=== PATIENT | male | born 1970 | race Caucasian/White ===

== ENCOUNTER 2017-10-05 10:47 | Inpatient (IN) | payer OTHER ==
[2017-10-05] MEDS ORDERED: ceFAZolin 2 GM/DEXTROSE 100 ML IV ONE (12:12)
--- NOTE | 2017-10-05 12:12 | PDHPUP ---
History & Physical Update H&P update statement: This history and physical update is based on an assessment of the patient which was completed after admission or registration (within 24 hours), but prior to the surgery/procedure. H&P update: H&P reviewed & patient examined, no change in patient's condition since H&P completed (printed form on chart from office visit today)
[2017-10-05] MEDS ORDERED: LIDOCAINE 1% 2 ML INJ ID PRN (14:51)
[2017-10-05] MEDS ORDERED: LR 1,000 ML IV ONE (14:51)
[2017-10-05] MEDS ORDERED: NS 500 ML IV PRN ×2 (15:38→18:42)
[2017-10-05] MEDS ORDERED: PROMETHAZINE HCL 25 MG/ML INJ IVP PRN (15:38)
[2017-10-05] MEDS ORDERED: fentaNYL 100 MCG/2 ML INJ IVP PRN ×2 (15:38→18:40)
[2017-10-05] MEDS ORDERED: NALOXONE HCL 0.4 MG/ML INJ IVP PRN ×3 (15:38→18:42)
[2017-10-05] MEDS ORDERED: OXYCODONE/APAP 5/325 TAB PO PRN ×2 (15:38→18:40)
[2017-10-05] MEDS ORDERED: HYDROmorphONE/DILAUDID 1 MG/ML INJ IVP PRN ×3 (15:38→18:42)
[2017-10-05] MEDS ORDERED: ONDANSETRON 4 MG/2 ML VIAL IVP PRN ×3 (15:38→18:42)
[2017-10-05] MEDS ORDERED: ACETAMINOPHEN 500 MG TAB PO PRN (15:38)
[2017-10-05] MEDS ORDERED: ALBUTEROL 3 ML DEYVIAL IH PRN ×2 (15:38→18:40)
[2017-10-05] MEDS ORDERED: MIDAZOLAM 2 MG/2 ML VIAL IVP ONE (15:39)
--- NOTE | 2017-10-05 15:40 | PDANEPAE ---
ANE History of Present Illness Dural Leak ANE Past Medical History - Cardiovascular History Hx Hypertension: Yes Hx Arrhythmias: No Hx Chest Pain: No Hx Coronary Artery / Peripheral Vascular Disease: No Hx CHF / Valvular Disease: No Hx Palpitations: No - Pulmonary History Hx COPD: No Hx Asthma/Reactive Airway Disease: No Hx Recent Upper Respiratory Infection: No Hx Oxygen in Use at Home: No Hx Sleep Apnea: No Sleep Apnea Screening Result - Last Documented: Negative - Neurologic History Hx Cerebrovascular Accident: No Hx Seizures: No Hx Dementia: No - Endocrine History Hx Diabetes: No - Renal History Hx Renal Disorders: No - Liver History Hx Hepatic Disorders: No - Neurological & Psychiatric Hx Hx Neurological and Psychiatric Disorders: No - Cancer History Hx Cancer: No - Congenital Disorder History Hx Congenital Disorders: No - GI History Hx Gastrointestinal Disorders: No - Chronic Pain History Chronic Pain: Yes (Back) - Surgical History Prior Surgeries: 2 back sx. bilateral lasix ANE Review of Systems Review of systems is: negative Review of Systems: - Exercise capacity Exercise capacity: >=4 METS METS (RN): 6 METS ANE Patient History - Allergies Allergies/Adverse Reactions: No Known Allergies Allergy (Unverified 04/07/10 14:34) - Home Medications Home Medications: Losartan Potassium [Cozaar 25 mg (*)] 12.5 mg 10/05/17 [Last Taken 10/04/17] - NPO status NPO Since - Liquids (Date): 10/05/17 NPO Since - Liquids (Time): 07:00 NPO Since - Solids (Date): 10/04/17 NPO Since - Solids (Time): 20:00 - Smoking Hx Smoking Status: Never smoked - Family Anes Hx Family Hx Anesthesia Complications: none ANE Labs/Vital Signs - Vital Signs Blood Pressure: 129/86 Heart Rate: 53 Respiratory Rate: 14 O2 Sat (%): 98 Height: 185.42 cm Weight: 79.379 kg ANE Physical Exam - Airway Neck exam: FROM Mallampati Score: Class 2 Mouth exam: normal dental/mouth exam - Pulmonary Pulmonary: clear to auscultation - Cardiovascular Cardiovascular: regular rate and rhythym - ASA Status ASA Status: I ANE Anesthesia Plan Anesthesia Plan: general endotracheal anesthesia
[2017-10-05] MEDS ORDERED: fentaNYL 100 MCG/2 ML INJ ONE (15:45)
[2017-10-05] MEDS ORDERED: PROPOFOL 200 MG/20 ML VIAL ONE (15:46)
[2017-10-05] MEDS ORDERED: SUCCINYLCHOLINE CHLORIDE 200 MG/10 ML SYR IVP ONE (15:48)
[2017-10-05] MEDS ORDERED: LIDOCAINE 2% 5 ML SDV ONE (15:48)
[2017-10-05] MEDS ORDERED: ONDANSETRON 4 MG/2 ML VIAL ONE (15:49)
[2017-10-05] MEDS ORDERED: DEXAMETHASONE 4 MG/ML VIAL ONE (15:49)
[2017-10-05] MEDS ORDERED: RANITIDINE 50 MG/2 ML VIAL ONE (15:49)
[2017-10-05] MEDS ORDERED: PROPOFOL/EMULSION 500 MG/50 ML BOTTLE IV ONE ×2 (15:52)
[2017-10-05] MEDS ORDERED: BUPIVACAINE 0.25% 30 ML SDV ONE (15:59)
[2017-10-05] MEDS ORDERED: THROMBIN (BOVINE) 5,000 UNIT VIAL TP ONE (16:00)
[2017-10-05] MEDS ORDERED: BACITRACIN 50,000 UNITS/10 ML SYR IRR ONE (16:00)
[2017-10-05] MEDS ORDERED: CHLORHEXIDINE GLUC HIBICLENS 118 ML BTL TP ONE (16:01)
[2017-10-05] MEDS ORDERED: REMIFENTANIL HCL 1 MG VIAL ONE ×2 (16:10)
[2017-10-05] MEDS ORDERED: LR 500 ML IV PRN (18:40)
--- NOTE | 2017-10-05 18:41 | POSTANESTH ---
Post Anesthetic Evaluation Cardiovascular Status: Normal, Stable Respiratory Status: Normal, Stable Level of Consciousness/Mental Status: Can Participate in Eval, Alert and Oriented Pain Control: Adequate, Prn Tx Ordered Nausea/Vomiting Control: Adequate, Prn Tx Ordered Complications Possibly Related to Anesthesia: None Noted
[2017-10-05] MEDS ORDERED: ONDANSETRON DISINTEGRATING 4 MG TAB PO PRN (18:42)
[2017-10-05] MEDS ORDERED: POLYETHYLENE GLYCOL 3350 17 GM PKT PO PRN (18:42)
[2017-10-05] MEDS ORDERED: HYDROmorphONE/DILAUDID 6 MG/30 ML PCA IV PRN (18:42)
[2017-10-05] MEDS ORDERED: LACTULOSE 20 GM/30 ML UDCUP PO PRN (18:42)
[2017-10-05] MEDS ORDERED: diphenhydrAMINE 25 MG CAP PO PRN (18:42)
[2017-10-05] MEDS ORDERED: BISACODYL 10 MG SUPP PR PRN (18:42)
[2017-10-05] MEDS ORDERED: ZOLPIDEM TARTRATE 5 MG TAB PO PRN (18:42)
[2017-10-05] MEDS ORDERED: HYDROCODONE/APAP 5/325 TAB PO PRN (18:42)
--- NOTE | 2017-10-05 18:42 | SOAPPROG ---
SOAP Progress Note Assessment/Plan: Post Op Visit: S: Awake and alert. NAD. Pt with expected lower back pain O: AFVSS/PERRLA/EOMI no droop CN 2-12 grossly intact +lt touch 5/5 BUE/BLE = CDI LD in place-working well A/P: 47 yo male that is s/p wound exploration with repair of dural tear -orders in place -call with any questions or concerns -flat at all times-can log roll -LD open at rate of 10-15 cc/hr -seen by Dr Gay 10/05/17 18:40 Objective: Vital Signs Temp Pulse Resp BP Pulse Ox 36.4 C 53 L 14 129/86 H 98 10/05/17 15:11 10/05/17 15:40 10/05/17 15:40 10/05/17 15:40 10/05/17 15:40 ICD10 Worksheet Patient Problems: Problems Problem Status Onset CSF leak Acute Inadvertent durotomy Acute Lumbar radicular pain Acute Lumbar stenosis Acute - ICD10 Problem Qualifiers (1) Lumbar stenosis (2) Lumbar radicular pain (3) Inadvertent durotomy (4) CSF leak
[2017-10-05] MEDS ORDERED: DEXMEDETOMIDINE HCL 400 MCG in NS 100 ML IV SCH (19:00)
[2017-10-05] MEDS ORDERED: HYDROmorphONE/DILAUDID 2 MG/ML INJ ONE (19:37)
[2017-10-05] MEDS: ACETAMINOPHEN 500 MG TAB PO SCH (21:30)
[2017-10-05] MEDS: oxyCODONE IR 5 MG TAB PO PRN (21:30)
[2017-10-05] MEDS: ceFAZolin 2 GM/DEXTROSE 100 ML IV SCH (21:30)
[2017-10-05] MEDS: METHOCARBAMOL 750 MG TAB PO PRN (21:31)
[2017-10-05] MEDS: SENNOSIDES/DOCUSATE SODIUM TAB PO SCH (21:31)
[2017-10-05] MEDS: FAMOTIDINE 20 MG TAB PO SCH (21:31)
[2017-10-05] MEDS: DEXMEDETOMIDINE IN 0.9 % NACL 50 ML IV SCH (23:09)
[2017-10-06] MEDS: DEXMEDETOMIDINE IN 0.9 % NACL 50 ML IV SCH ×2 (01:54→04:48)
[2017-10-06] MEDS: oxyCODONE IR 5 MG TAB PO PRN ×4 (01:54→19:15)
--- NOTE | 2017-10-06 02:45 | GOP ---
[f rep st] OPERATIVE REPORT DATE OF OPERATION: 10/05/2017 SURGEON: Migdalia Gay MD ATMOSPHERIC PHYSICIST: Shaggy Weaver PA-C. PREOPERATIVE DIAGNOSIS: Delayed cerebrospinal fluid leak, lumbar spine. POSTOPERATIVE DIAGNOSIS: Delayed cerebrospinal fluid leak, lumbar spine. PROCEDURE PERFORMED: 1. Percutaneous placement of a lumbar drainage catheter for therapeutic purposes at the L2-3 level. 2. Repair of lumbar spine, cerebrospinal fluid leak, and durotomy with laminectomy at L5. FINDINGS: ESTIMATED BLOOD LOSS: 10 cc. INDICATIONS: The patient is a 47-year-old who underwent a successful lumbar laminectomy 1 week ago, and he was doing relatively well until this past weekend when he developed increasing leg pain, numbness in the leg, mild headaches. his headache and all of his symptoms improved when he was lying flat. 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 He was taken to the operating room urgently on the day of the diagnosis. He understood the risks of the procedure, including the risk of nerve injury, infection, and recurrent spinal fluid leak. He did want to proceed. DESCRIPTION OF PROCEDURE: Patient was taken to the operating room, placed in supine position. General anesthesia was begun. He was flipped prone on the Eliseo frame. Care was taken to pad all points of contact. His back was sterilely prepped and draped in usual fashion. A localizing x-ray was taken. Using fluoroscopic guidance, we placed a percutaneous lumbar drainage catheter at the L2-3 level. There was return of xanthochromic CSF. We then turned our attention to the incision. We cut his sutures, and one could appreciate in the subfascial space the same xanthochromic fluid as we could see in the spinal fluid that was drained from the lumbar drainage catheter. Self-retaining retractors were placed. There was no other evidence of problem at the laminae site. The prior previous adherence to the dura on the left-hand side of some old scar tissue actually had from the dura and we were able to remove this on the left-hand side. We appreciated a midline dural bleb that was located deep to the preserved the ligamentum flavum at the L4-5 level. The dural bleb was right at the rostral tip of L5 that had been preserved. We took a high-speed drill and drilled off the rostral arch of L5. L5 itself really was still maintained. We used a Kerrison punch to remove this and stayed well away from the bleb. As we removed this, it also was attached to the ligamentum flavum above the dural defect, and this was completely removed and we were left staring and arachnoid bleb coming out of the midline dura. There was a small area of thinning of the dura over on the left-hand side adjacent to the left L5 pedicle, but there was no leakage of spinal fluid from this site. A Valsalva maneuver was performed, and the spinal fluid only emanated from the region of the durotomy in the bleb. We did remove, however, bone above the left L5 nerve root sleeve where the other slight dural defect was appreciated, but again, there was no significant arachnoid bleb present here. We then reduced the arachnoid bleb into the intrathecal space and took a 6-0 Prolene suture and placed a single Z-stitch across the dural opening and then tied it, and then repeated our Valsalva maneuver, and there was no leakage whatsoever. A completely watertight closure had been obtained. We then finished inspecting. Circumferentially, there was no evidence of any additional abnormalities in the dura itself. We then closed with interrupted Vicryl sutures. A running PDS was placed in the skin. There were no complications. He tolerated the procedure well and will be transferred to the ICU for lumbar drainage care. COMPLICATIONS: None. /[id number]/MODL MTDD
[2017-10-06] MEDS: METHOCARBAMOL 750 MG TAB PO PRN ×3 (06:10→19:15)
[2017-10-06] MEDS: ACETAMINOPHEN 500 MG TAB PO SCH ×3 (06:10→21:28)
[2017-10-06] MEDS: ceFAZolin 2 GM/DEXTROSE 100 ML IV SCH (06:10)
--- NOTE | 2017-10-06 07:09 | NEUSURGPN ---
Date of Surgery: 10/05/17 Post Op Day: 1 Assessment/Plan: Assessment: 47 yo male that is s/p wound exploration with repair of dural tear POD #1 Plan: -s/p wound exploration and dural repair-incision CDI, dressing in place -LD open to continuous at 10-15 cc/hr -PT/OT on hold -flat at all times until Wednesday am -SCDS/TEDS -orders in place -call with any questions or concerns -flat at all times-can log roll -seen by Dr Gay -dressing looks good as does position of drain 10/05/17 18:40 Subjective: Awake and alert. NAD. Eating/drinking and voiding. No f/c/n/v/d. Objective: AFVSS/PERRLA/EOMI no droop CN 2-12 grossly intact +lt touch 5/5 BUE/BLE = CDI LD in place-working well Neuro Check Frequency: per routine Urinary Catheter in Place: No - Physician Discussed Patient with : Victor Hugo Patient Seen by : Victor Hugo Neurosurgery Physical Exam - Vitals, I&O, Labs I and O 10/05/17 10/06/17 10/07/17 05:59 05:59 05:59 Intake Total 1271.6 Output Total 653 300 Balance -653 971.6 Weight 79.379 kg Intake: Oral (ml) 400 IV Infused (ml) 871.6 Dexmedetomidine HCl 400 59.6 mcg In Ns 100 ml @ Titrate IV CONT CB Rx#: [id number] HYDROmorphone HCL See 3 Protocol IV PRN PRN Rx#: [id number] NS W/ 20 KCl/L 1,000 ml @ 809 75 mls/hr IV CONT CB Rx #:[id number] Output: Urine (ml) 500 300 Urinal 500 300 CSF Drainage Amount 153 Lumbar Drain 153 Other: Intake Quantity Yes Sufficient Microbiology 10/05/17 17:13 Gram Stain - Final Other - Eswab Vital Signs Temp Pulse Resp BP Pulse Ox 36.4 C 67 14 104/65 93 10/05/17 18:30 10/06/17 05:59 10/06/17 05:59 10/06/17 05:59 10/06/17 05:59 ICD10 Worksheet Patient Problems: Problems Problem Status Onset CSF leak Acute Inadvertent durotomy Acute Lumbar radicular pain Acute Lumbar stenosis Acute - ICD10 Problem Qualifiers (1) Lumbar stenosis (2) Lumbar radicular pain (3) Inadvertent durotomy (4) CSF leak
[2017-10-06] MEDS ORDERED: Finasteride [Propecia] 1 MG PO SCH (09:00)
[2017-10-06] MEDS: FAMOTIDINE 20 MG TAB PO SCH ×2 (09:14→19:16)
[2017-10-06] MEDS: SENNOSIDES/DOCUSATE SODIUM TAB PO SCH ×2 (09:14→19:16)
[2017-10-06] MEDS: LOSARTAN POTASSIUM 25 MG TAB PO SCH ×2 (09:15→09:17)
[2017-10-06] MEDS: NS W/ 20 KCl/L 1,000 ML IV SCH (10:01)
--- NOTE | 2017-10-06 12:08 | ASMTCMCOM ---
CM Note CM Note Notes: Patient is POD #1 wound exploration with repair of dural tear. He is s/p lumbar laminectomy 09/27 (outpatient). He has a lumbar drain and is on strict bedrest until Wednesday AM. PT/OT on hold until that time. 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 CM will follow for discharge planning. Current CM Discharge plan: TBD Date Signed: 10/06/2017 12:08 PM Electronically Signed By:Jordyn Siddiqi RN
[2017-10-06] MEDS: MAGNESIUM HYDROXIDE 30 ML UDCUP PO PRN (19:18)
[2017-10-06] MEDS ORDERED: DIAZEPAM 10 MG TAB PO PRN (20:49)
[2017-10-06] MEDS: ENOXAPARIN 40 MG/0.4 ML SYR SC SCH (21:29)
[2017-10-07] MEDS: ACETAMINOPHEN 500 MG TAB PO SCH ×3 (06:06→20:12)
--- NOTE | 2017-10-07 08:20 | NEUSURGPN ---
Date of Surgery: 10/05/17 Post Op Day: 2 Assessment/Plan: Assessment: 47 yo male that is s/p wound exploration with repair of dural tear POD #2 Plan: -s/p wound exploration and dural repair-incision CDI, dressing in place -LD open to continuous at 10-15 cc/hr-working well -PT/OT on hold -flat at all times until Wednesday am -SCDS/TEDS -on lovenox -pt on bowel protocol -orders in place -call with any questions or concerns -flat at all times-can log roll -seen by Dr Gay -dressing looks good as does position of drain 10/05/17 18:40 Subjective: Awake and alert. NAD. Eating/drinking and voiding. No BM-on protocol No f/c/n /v/d. No marquez/neck/chest/abd or gu complaints. Objective: AFVSS/PERRLA/EOMI no droop CN 2-12 grossly intact +lt touch 5/5 BUE/BLE = CDI LD in place-working well Neuro Check Frequency: per routine Urinary Catheter in Place: No - Physician Discussed Patient with Dr.: Victor Hugo Patient Seen by .: Victor Hugo Neurosurgery Physical Exam - Vitals, I&O, Labs I and O 10/06/17 10/07/17 10/08/17 05:59 05:59 05:59 Intake Total 3174.4 Output Total 653 2265 14 Balance -653 909.4 -14 Weight 79.379 kg Intake: Oral (ml) 1150 IV Infused (ml) 2024.4 Dexmedetomidine HCl 400 74.8 mcg In Ns 100 ml @ Titrate IV CONT CB Rx#: [id number] HYDROmorphone HCL See 8.6 Protocol IV PRN PRN Rx#: [id number] NS W/ 20 KCl/L 1,000 ml @ 1941 75 mls/hr IV CONT CB Rx #:[id number] Output: Urine (ml) 500 1950 Urinal 500 1950 CSF Drainage Amount 153 315 14 Lumbar Drain 153 315 14 Other: Intake Quantity Yes Sufficient Number of Voids Urinal 2 Microbiology 10/05/17 17:13 Gram Stain - Final Other - Eswab Vital Signs Temp Pulse Resp BP Pulse Ox 36.7 C 60 15 112/71 98 10/07/17 00:00 10/07/17 07:23 10/07/17 07:23 10/07/17 07:23 10/07/17 07:23 ICD10 Worksheet Patient Problems: Problems Problem Status Onset CSF leak Acute Inadvertent durotomy Acute Lumbar radicular pain Acute Lumbar stenosis Acute - ICD10 Problem Qualifiers (1) Lumbar stenosis (2) Lumbar radicular pain (3) Inadvertent durotomy (4) CSF leak
[2017-10-07] MEDS: SENNOSIDES/DOCUSATE SODIUM TAB PO SCH ×2 (08:25→20:12)
[2017-10-07] MEDS: ENOXAPARIN 40 MG/0.4 ML SYR SC SCH (08:26)
[2017-10-07] MEDS: FAMOTIDINE 20 MG TAB PO SCH (08:26)
[2017-10-07] MEDS: MAGNESIUM HYDROXIDE 30 ML UDCUP PO PRN (08:26)
[2017-10-07] MEDS: LOSARTAN POTASSIUM 25 MG TAB PO SCH (08:26)
[2017-10-07] MEDS: METHOCARBAMOL 750 MG TAB PO PRN (08:41)
[2017-10-07] MEDS ORDERED: METHYLNALTREXONE BROMIDE 12 MG/0.6 ML INJ SC ONE (15:45)
[2017-10-07] MEDS ORDERED: KETOROLAC 30 MG/1 ML SDV IVP PRN (16:26)
[2017-10-07] MEDS ORDERED: KETOROLAC 30 MG/1 ML SDV IVP ONE (16:45)
[2017-10-07] MEDS: DEXMEDETOMIDINE IN 0.9 % NACL 50 ML IV SCH (18:00)
[2017-10-07] MEDS: NS W/ 20 KCl/L 1,000 ML IV SCH (18:01)
[2017-10-07] MEDS ORDERED: NS W/ 20 KCl/L 1,000 ML IV SCH (19:00)
[2017-10-07] MEDS: FAMOTIDINE 20 MG/NACL/50 ML BAG IV SCH (20:17)
[2017-10-08] MEDS: DEXMEDETOMIDINE IN 0.9 % NACL 50 ML IV SCH (01:03)
[2017-10-08] MEDS: ACETAMINOPHEN 500 MG TAB PO SCH ×3 (01:38→21:59)
[2017-10-08] MEDS: KETOROLAC 30 MG/1 ML SDV IVP PRN ×3 (03:39→20:02)
[2017-10-08] MEDS: DIAZEPAM 10 MG/2 ML SYR IVP PRN ×2 (04:02→20:03)
[2017-10-08 04:20] LABS: PLATELET COUNT 224 10^3/uL (150-400)
--- NOTE | 2017-10-08 07:55 | SOAPPROG ---
SOAP Progress Note Assessment/Plan: Assessment/Plan: POD #3. Assessment: 47 yo male that is s/p wound exploration with repair of dural tear POD #3. Neuro intact and stable pain well controlled NG tube in place feeling much better Plan: -s/p wound exploration and dural repair-incision CDI, dressing in place -LD open to continuous at 10-15 cc/hr-working well -PT/OT on hold -flat at all times until Wednesday am -SCDS/TEDS -on lovenox -pt on bowel protocol -call with any questions or concerns -flat at all times-can log roll -dressing looks good as does position of drain -discussed with Dr. Gay Subjective: Awake and alert. Feeling better today. NG in place, but he would like it removed. It has been clamped by RN. No marquez/neck/chest/abd or gu complaints. Objective: AFVSS/PERRLA/EOMI no droop CN 2-12 grossly intact +lt touch 5/5 BUE/BLE = CDI LD in place-working well 10/08/17 07:55 Objective: Vital Signs Temp Pulse Resp BP Pulse Ox 36.3 C 45 L 14 105/69 94 10/08/17 04:00 10/08/17 04:00 10/08/17 04:00 10/08/17 04:00 10/08/17 04:00 Microbiology 10/05/17 17:13 Gram Stain - Final Other - Eswab Laboratory Results 10/08/17 04:10 10/08/17 04:10 10/07/17 10/08/17 10/09/17 05:59 05:59 05:59 Intake Total 3174.4 1132 Output Total 4267 4893 Balance 909.4 -705 ICD10 Worksheet Patient Problems: Problems Problem Status Onset CSF leak Acute Inadvertent durotomy Acute Lumbar radicular pain Acute Lumbar stenosis Acute
[2017-10-08] MEDS: ENOXAPARIN 40 MG/0.4 ML SYR SC SCH (08:21)
[2017-10-08] MEDS: FAMOTIDINE 20 MG/NACL/50 ML BAG IV SCH ×2 (08:21→22:05)
[2017-10-08] MEDS ORDERED: MBX SOLN 30 ML BOTTLE PO PRN (09:30)
[2017-10-08] MEDS: LOSARTAN POTASSIUM 25 MG TAB PO SCH (09:36)
[2017-10-08] MEDS: SENNOSIDES/DOCUSATE SODIUM TAB PO SCH ×2 (09:36→22:00)
--- NOTE | 2017-10-08 12:37 | ASMTCMCOM ---
CM Note CM Note Notes: Patient remains on strict bed rest until Wednesday. PT/OT have not been able to eval yet. Awaiting therapies to determine d/c needs. CM will follow. Date Signed: 10/08/2017 12:37 PM Electronically Signed By:Radha Toscano LCSW
[2017-10-09] MEDS: DEXMEDETOMIDINE IN 0.9 % NACL 50 ML IV SCH (03:03)
[2017-10-09] MEDS: ACETAMINOPHEN 500 MG TAB PO SCH ×3 (07:46→21:28)
--- NOTE | 2017-10-09 08:27 | NEUSURGPN ---
Date of Surgery: 10/05/17 Post Op Day: 4 Assessment/Plan: POD #3. Assessment: 47 yo male that is s/p wound exploration with repair of dural tear POD #4. Plan: -neuro stable -pain controlled -LD open to continuous at 10-15 cc/hr-working well, dressing clean -PT/OT on hold until upright -flat at all times until Wednesday am -SCDS/TEDS -on lovenox -pt on bowel protocol, will defer to Dr. Rucker regarding NG tube -call with any questions or concerns -flat at all times-can log roll -please call with any questions/concerns Subjective: Doing well this morning. Pain controlled. No headaches or new overnight issues. (+) flatulence, No BM. Objective: Awake. Alert. PERRL. EOMI LE strength 5/5 Sensation intact Incision with dressing c/d/i Neurosurgery Physical Exam - Vitals, I&O, Labs I and O 10/08/17 10/09/17 10/10/17 05:59 05:59 05:59 Intake Total 1132 1907 Output Total 1837 1005 45 Balance -705 902 -45 Intake: IV Intake (ml) 950 IV Infused (ml) 1132 957 Dexmedetomidine HCl 400 36 47 mcg In Ns 100 ml @ Titrate IV CONT CB Rx#: [id number] NS W/ 20 KCl/L 1,000 ml @ 1096 75 mls/hr IV CONT CB Rx #:[id number] NS W/ 20 KCl/L 1,000 ml @ 910 As Directed IV CONT CB Rx#:[id number] Output: Urine (ml) 1300 450 Urinal 1300 450 NG Tube Output (ml) 250 300 Large Bore (>12 [place]) 250 300 Right Naris Stomach [place] Sump CSF Drainage Amount 287 255 45 Lumbar Drain 287 255 45 Microbiology 10/05/17 17:13 Gram Stain - Final Other - Eswab Anaerobic Culture - Final Vital Signs Temp Pulse Resp BP Pulse Ox 36.3 C 49 L 18 121/80 H 98 10/09/17 07:30 10/09/17 07:30 10/09/17 07:30 10/09/17 07:30 10/09/17 07:30 Laboratory Results 10/08/17 04:10 10/08/17 04:10 ICD10 Worksheet Patient Problems: Problems Problem Status Onset CSF leak Acute Inadvertent durotomy Acute Lumbar radicular pain Acute Lumbar stenosis Acute
[2017-10-09] MEDS: FAMOTIDINE 20 MG/NACL/50 ML BAG IV SCH ×2 (08:42→20:57)
[2017-10-09] MEDS: ENOXAPARIN 40 MG/0.4 ML SYR SC SCH (08:42)
[2017-10-09] MEDS: SENNOSIDES/DOCUSATE SODIUM TAB PO SCH ×2 (09:00→20:58)
[2017-10-09] MEDS: LOSARTAN POTASSIUM 25 MG TAB PO SCH (11:06)
[2017-10-09] MEDS: KETOROLAC 30 MG/1 ML SDV IVP PRN ×2 (12:40→20:57)
[2017-10-09] MEDS: DIAZEPAM 10 MG/2 ML SYR IVP PRN (20:57)
[2017-10-10] MEDS: DIAZEPAM 10 MG/2 ML SYR IVP PRN (00:50)
[2017-10-10] MEDS: ACETAMINOPHEN 500 MG TAB PO SCH ×3 (07:45→22:08)
[2017-10-10] MEDS: KETOROLAC 30 MG/1 ML SDV IVP PRN (08:01)
[2017-10-10] MEDS: ENOXAPARIN 40 MG/0.4 ML SYR SC SCH (08:02)
[2017-10-10] MEDS: FAMOTIDINE 20 MG/NACL/50 ML BAG IV SCH ×2 (08:02→22:07)
[2017-10-10] MEDS: LOSARTAN POTASSIUM 25 MG TAB PO SCH (08:06)
[2017-10-10] MEDS: SENNOSIDES/DOCUSATE SODIUM TAB PO SCH ×2 (08:06→22:07)
--- NOTE | 2017-10-10 08:37 | NEUSURGPN ---
Date of Surgery: 10/05/17 Post Op Day: 5 Assessment/Plan: POD #3. Assessment: 47 yo male that is s/p wound exploration with repair of dural tear POD #5. Plan: -neuro stable -pain controlled -LD open to continuous at 10-15 cc/hr-working well, dressing clean -PT/OT on hold until upright -flat at all times until Wednesday am -SCDS/TEDS -on lovenox -bowel protocol -flat at all times-can log roll -please call with any questions/concerns Subjective: Doing well this morning. Had an occurrence of left leg pain last evening, now resolved. Mild headache. Objective: Awake. Alert. PERRL. EOMI Speech fluent Muscle strength full at 5/5 Sensation intact Dressing c/d/i Neurosurgery Physical Exam - Vitals, I&O, Labs I and O 10/09/17 10/10/17 10/11/17 05:59 05:59 05:59 Intake Total 1907 2634 Output Total 1605 1224 28 Balance 302 1410 -28 Intake: Oral (ml) 800 IV Intake (ml) 950 IV Infused (ml) 957 1834 Dexmedetomidine HCl 400 47 mcg In Ns 100 ml @ Titrate IV CONT CB Rx#: [id number] NS W/ 20 KCl/L 1,000 ml @ 910 1834 As Directed IV CONT CB Rx#:[id number] Output: Urine (ml) 1050 1000 Urinal 1050 1000 NG Tube Output (ml) 300 Large Bore (>12 [place]) 300 Right Naris Stomach [place] Sump CSF Drainage Amount 255 224 28 Lumbar Drain 255 224 28 Other: Intake Quantity Yes Sufficient Number of Stools Urinal 0 Vital Signs Temp Pulse Resp BP Pulse Ox 36.5 C 43 L 16 123/81 H 100 10/10/17 07:51 10/10/17 07:51 10/10/17 07:51 10/10/17 07:51 10/10/17 07:51 Laboratory Results 10/08/17 04:10 10/08/17 04:10 ICD10 Worksheet Patient Problems: Problems Problem Status Onset CSF leak Acute Inadvertent durotomy Acute Lumbar radicular pain Acute Lumbar stenosis Acute
[2017-10-10] MEDS ORDERED: IBUPROFEN 600 MG TAB PO PRN (21:21)
[2017-10-10] MEDS ORDERED: DIAZEPAM 5 MG TAB PO PRN (21:30)
[2017-10-11] MEDS: ACETAMINOPHEN 500 MG TAB PO SCH (06:07)
--- NOTE | 2017-10-11 07:27 | NEUSURGPN ---
Date of Surgery: 10/05/17 Post Op Day: 6 Assessment/Plan: Assessment: 47 yo male that is s/p wound exploration with repair of dural tear POD #6 Plan: -neuro stable -pain well controlled -LD removed this am by Dr Gay-area cleaned first and then removed intact. DSD applied to area -PT/OT ok for this afternoon -working on progressing to upright over next 4-6 hrs-call with any HAs -SCDS/TEDS -off lovenox for drain removal -bowel protocol -pt seen and evaluated by Dr Gay -plan to dc later today-mid afternoon -please call with any questions/concerns Subjective: Awake and alert. NAD. Eating/drinking and voiding. No f/c/n/v/d. Objective: AAO x 3, PERRLA/EOMI no droop 5/5 BUE/BLE = CDI Neuro Check Frequency: per routine Urinary Catheter in Place: No - Physician Discussed Patient with : Victor Hugo Patient Seen by : Victor Hugo Neurosurgery Physical Exam - Vitals, I&O, Labs I and O 10/10/17 10/11/17 10/12/17 05:59 05:59 05:59 Intake Total 2634 Output Total 1224 232 10 Balance 1410 -232 -10 Intake: Oral (ml) 800 IV Infused (ml) 1834 NS W/ 20 KCl/L 1,000 ml @ 1834 As Directed IV CONT CB Rx#:[id number] Output: Urine (ml) 1000 Urinal 1000 CSF Drainage Amount 224 232 10 Lumbar Drain 224 232 10 Other: Intake Quantity Yes Sufficient Number of Voids Urinal 4 Number of Stools Urinal 0 Vital Signs Temp Pulse Resp BP Pulse Ox 36.6 C 60 15 107/61 96 10/10/17 20:00 10/11/17 00:00 10/10/17 20:00 10/10/17 20:00 10/10/17 20:00 Laboratory Results 10/08/17 04:10 10/08/17 04:10 ICD10 Worksheet Patient Problems: Problems Problem Status Onset CSF leak Acute Inadvertent durotomy Acute Lumbar radicular pain Acute Lumbar stenosis Acute - ICD10 Problem Qualifiers (1) Lumbar stenosis (2) Lumbar radicular pain (3) Inadvertent durotomy (4) CSF leak
[2017-10-11 10:15] VITALS: TEMP 97.9
[2017-10-11] MEDS: FAMOTIDINE 20 MG/NACL/50 ML BAG IV SCH (10:31)
[2017-10-11] MEDS: LOSARTAN POTASSIUM 25 MG TAB PO SCH (10:31)
[2017-10-11] MEDS: SENNOSIDES/DOCUSATE SODIUM TAB PO SCH (10:32)
[2017-10-11 12:42] VITALS: BP 130/85; PULSE 63; RESP 14; O2SAT 98
== END 2017-10-11 12:55 | disposition home or self-care (01) | DRG 909 ==
LOC: FSGY 10:47 → F2N 18:21 → EEVIPCON 18:21 → F2N 18:37
PROVIDERS: ADMIT Neurological Surgery; ATTEND Neurological Surgery
PROC: 00QT0ZZ Repair Spinal Meninges, Open Approach (ICD-10-PCS; principal; 2017-10-05 16:00)
PROC: 0J9730Z Drainage of Back Subcutaneous Tissue and Fascia with Drainage Device, Percutaneous Approach (ICD-10-PCS; principal; 2017-10-05 16:00)
DX: G96.11 Dural tear (principal); I10 Essential (primary) hypertension
CPT/HCPCS: 97161-GP; J0171; J0330; J0690; J1100; J1170; J1650; J1885; J2212; J2250; J2405; J2704; J2780; J3010; J3360

== ENCOUNTER → 2017-10-05 | Outpatient (CLI) | payer OTHER | LOC: FIMAGING 10:42 | PROVIDERS: ATTEND Neurological Surgery | PROC: 0J9730Z Drainage of Back Subcutaneous Tissue and Fascia with Drainage Device, Percutaneous Approach (ICD-10-PCS; principal; 2017-10-05) | DX: M96.840 Postprocedural hematoma of a musculoskeletal structure following a musculoskeletal system procedure (principal); M51.36 Other intervertebral disc degeneration, lumbar region ==